=== PATIENT | female | born 1985 | race Caucasian/White ===

== ENCOUNTER 2016-06-25 16:23 | Emergency (ER) | payer SELFPAY ==
[~2016-06-25] VITALS: Ht 162.6 cm; Wt 57.5 kg
[~2016-06-25 16:23] MED LIST: TRAM50TA2 PO
[2016-06-25] MEDS ORDERED: ASPIRIN 81 MG TABLET CHEW ONE (16:56)
[2016-06-25] MEDS ORDERED: ASPIRIN 81 MG TABLET CHEW PO ONE (17:00)
[2016-06-25] MEDS ORDERED: SODIUM CHLORIDE FLUSH 10ML SYR IVF ONE (17:00)
[2016-06-25 17:31] LABS: BLOOD UREA NITROGEN 17 mg/dL (7-18)
[2016-06-25 17:34] LABS: IS PT STATUS REG ER OR PRE ER? YES
[2016-06-25] MEDS ORDERED: KETOROLAC 30 MG/1 ML ONE (17:54)
[2016-06-25] MEDS ORDERED: KETOROLAC 30 MG/1 ML IM ONE (18:00)
[2016-06-25 18:45] VITALS: BP 105/55
== END 2016-06-25 18:50 | disposition home or self-care (01) ==
LOC: ED 18:44
DX: S46.812A Strain of other muscles, fascia and tendons at shoulder and upper arm level, left arm, initial encounter (principal); R07.89 Other chest pain; X58.XXXA Exposure to other specified factors, initial encounter; Y93.89 Activity, other specified; Y99.8 Other external cause status; Y92.89 Other specified places as the place of occurrence of the external cause
CPT/HCPCS: 36415; 71010; 80048; 82040; 84484; 85025; 93005; 96372; 99285; J1885

== ENCOUNTER 2017-03-25 18:01 | Emergency (ER) | payer SELFPAY ==
[~2017-03-25] VITALS: Ht 162.6 cm; Wt 60.6 kg
[2017-03-25] MEDS ORDERED: SODIUM CHLORIDE FLUSH 10ML SYR IVF ONE (19:00)
[2017-03-25] MEDS ORDERED: ONDANSETRON 2MG/ML, 2ML IVPush ONE (19:00)
[2017-03-25] MEDS ORDERED: ASPIRIN 81 MG TABLET CHEW PO ONE (19:00)
[2017-03-25 19:01] LABS: BASOPHILS # (AUTO) 0.02 x10^3/uL (0-0.1); BASOPHILS % (AUTO) 0 % (0-1); EOSINOPHILS # (AUTO) 0.13 x10^3/uL (0-0.4); EOSINOPHILS % (AUTO) 2 % (1-7); LYMPHOCYTES # (AUTO) 2.07 x10^3/uL (1-3.4); LYMPHOCYTES % (AUTO) 32 % (22-44); MD NO; MEAN CORPUSCULAR HEMOGLOBIN 30.2 pg (27.0-34.8); MEAN CORPUSCULAR HGB CONC 33.3 g/dL (32.4-35.8); MEAN CORPUSCULAR VOLUME 90.7 fL (80-100); MEAN PLATELET VOLUME 8.6 fL (7.4-10.4); MONOCYTES # (AUTO) 0.44 x10^3/uL (0.2-0.8); MONOCYTES % (AUTO) 7 % (2-9); NEUTROPHILS # (AUTO) 3.87 x10^3/uL (1.8-6.8); NEUTROPHILS % (AUTO) 59 % (42-75); PLATELET COUNT 270 x10^3/uL (130-400); RED CELL DISTRIBUTION WIDTH 13.4 % (9.6-15.2)
[2017-03-25] MEDS ORDERED: ASPIRIN 81 MG TABLET CHEW ONE (19:08)
[2017-03-25] MEDS ORDERED: ONDANSETRON 2MG/ML, 2ML ONE (19:08)
[2017-03-25 19:14] LABS: ALANINE AMINOTRANSFERASE 26 U/L (12-78); ALBUMIN 3.9 g/dL (3.4-5.0); ANION GAP 8 mmol/L (5-15); CALCIUM 8.8 mg/dL (8.5-10.1); CHLORIDE 106 mmol/L (98-107); CREATININE 0.72 mg/dL (0.55-1.02)
[2017-03-25 19:19] LABS: ALKALINE PHOSPHATASE 45 U/L (45-117); BILIRUBIN,TOTAL 0.4 mg/dL (0.2-1.0); TOTAL PROTEIN 7.7 g/dL (6.4-8.2); TROPONIN I < 0.015 ng/mL (0.000-0.045)
[2017-03-25 19:27] LABS: D-DIMER < 0.19 ug/mlFEU (0.00-0.52); INTERNATIONAL NORMALIZED RATIO 1.13 (0.93-1.1); PARTIAL THROMBOPLASTIN TIME 30 Seconds (25-31); PROTHROMBIN TIME 11.6 Seconds (9.6-11.5)
[2017-03-25] MEDS ORDERED: MAALOX/HYOSCYAMINE/LIDOCAINE 45 ML BTL PO ONE (20:00)
[2017-03-25] MEDS ORDERED: MORPHINE SULFATE 4 MG/ML, 1ML IVPush ONE (20:00)
[2017-03-25 20:06] LABS: HCT (SEDRATE) 43.7 % (34.6-47.8)
[2017-03-25] MEDS ORDERED: MAALOX/HYOSCYAMINE/LIDOCAINE 45 ML BTL ONE (20:17)
[2017-03-25] MEDS ORDERED: MORPHINE SULFATE 4 MG/ML, 1ML ONE (20:17)
[2017-03-25 21:24] VITALS: BP 105/61
== END 2017-03-25 21:27 | disposition home or self-care (01) ==
LOC: ED 21:21
DX: R07.2 Precordial pain (principal); R11.2 Nausea with vomiting, unspecified
CPT/HCPCS: 36415; 71045; 80053; 83690; 83880; 84484; 84703; 85025; 85379; 85610; 85651; 85730; 86140; 93005; 96374; 96375; 99285; J2405

== ENCOUNTER 2017-03-29 17:51 | Emergency (ER) | payer OTHER ==
[~2017-03-29] VITALS: Ht 162.6 cm; Wt 61.1 kg
[2017-03-29] MEDS ORDERED: SODIUM CHLORIDE FLUSH 10ML SYR IVF ONE (18:30)
[2017-03-29] MEDS ORDERED: SODIUM CHLORIDE 0.9% 1,000ML IVBOLUS ONE (18:30)
[2017-03-29] MEDS ORDERED: ASPIRIN 81 MG TABLET CHEW PO ONE (18:30)
[2017-03-29 19:03] LABS: ALBUMIN 4.1 g/dL (3.4-5.0); ANION GAP 8 mmol/L (5-15); CALCIUM 8.6 mg/dL (8.5-10.1); CHLORIDE 106 mmol/L (98-107)
[2017-03-29] MEDS ORDERED: ASPIRIN 81 MG TABLET CHEW ONE (19:05)
[2017-03-29 19:07] LABS: ALANINE AMINOTRANSFERASE 21 U/L (12-78); ALKALINE PHOSPHATASE 44 U/L (45-117); BILIRUBIN,TOTAL 0.4 mg/dL (0.2-1.0); TOTAL PROTEIN 7.6 g/dL (6.4-8.2); TROPONIN I < 0.015 ng/mL (0.000-0.045)
[2017-03-29] MEDS ORDERED: MORPHINE SULFATE 4 MG/ML, 1ML ONE (19:56)
[2017-03-29] MEDS ORDERED: MORPHINE SULFATE 4 MG/ML, 1ML IVPush PRN (20:00)
[2017-03-29] MEDS ORDERED: ONDANSETRON 2MG/ML, 2ML IVPush ONE (20:00)
[2017-03-29] MEDS ORDERED: OMNIPAQUE 350 MG/ML, 100ML BOTTLE ONE (20:00)
[2017-03-29] MEDS ORDERED: ONDANSETRON 2MG/ML, 2ML ONE (20:19)
[2017-03-29 20:33] LABS: RAPID INFLUENZA A Negative (Negative); RAPID INFLUENZA B Negative (Negative)
[2017-03-29 21:27] VITALS: BP 136/66
== END 2017-03-29 21:29 | disposition home or self-care (01) ==
LOC: ED 21:13
DX: B34.9 Viral infection, unspecified (principal); R07.89 Other chest pain; R09.1 Pleurisy; Z86.73 Personal history of transient ischemic attack (TIA), and cerebral infarction without residual deficits; Z95.2 Presence of prosthetic heart valve
CPT/HCPCS: 36415; 71046; 71275; 80053; 83880; 84484; 87400; 93005; 96361; 96374; 96375; 99285; J2405; J7030; Q9967

== ENCOUNTER 2017-06-05 17:40 | Emergency (ER) | payer OTHER ==
[~2017-06-05] VITALS: Ht 162.6 cm; Wt 64.0 kg
[2017-06-05 18:43] LABS: BASOPHILS # (AUTO) 0.05 x10^3/uL (0-0.1); BASOPHILS % (AUTO) 1 % (0-1); EOSINOPHILS # (AUTO) 0.11 x10^3/uL (0-0.4); EOSINOPHILS % (AUTO) 1 % (1-7); LYMPHOCYTES % (AUTO) 32 % (22-44); MD NO; MEAN CORPUSCULAR HEMOGLOBIN 30.5 pg (27.0-34.8); MEAN CORPUSCULAR HGB CONC 33.8 g/dL (32.4-35.8); MEAN CORPUSCULAR VOLUME 90.4 fL (80-100); MEAN PLATELET VOLUME 8.4 fL (7.4-10.4); MONOCYTES # (AUTO) 0.61 x10^3/uL (0.2-0.8); MONOCYTES % (AUTO) 8 % (2-9); NEUTROPHILS # (AUTO) 4.67 x10^3/uL (1.8-6.8); NEUTROPHILS % (AUTO) 59 % (42-75); PLATELET COUNT 284 x10^3/uL (130-400); RED BLOOD COUNT 4.63 x10^6/uL (3.82-5.3); RED CELL DISTRIBUTION WIDTH 13.3 % (9.6-15.2)
[2017-06-05 18:55] LABS: ALBUMIN 4.1 g/dL (3.4-5.0); ANION GAP 8 mmol/L (5-15); CHLORIDE 105 mmol/L (98-107)
[2017-06-05] MEDS ORDERED: MAALOX/HYOSCYAMINE/LIDOCAINE 45 ML BTL PO ONE (19:00)
[2017-06-05] MEDS ORDERED: FAMOTIDINE 20 MG TABLET PO ONE (19:00)
[2017-06-05] MEDS ORDERED: ONDANSETRON ODT 8 MG PO ONE (19:00)
[2017-06-05 19:01] LABS: ALANINE AMINOTRANSFERASE 36 U/L (12-78); ALKALINE PHOSPHATASE 46 U/L (45-117); BILIRUBIN,TOTAL 0.5 mg/dL (0.2-1.0); CREATININE 0.74 mg/dL (0.55-1.02)
[2017-06-05] MEDS ORDERED: FAMOTIDINE 20 MG TABLET ONE (19:17)
[2017-06-05] MEDS ORDERED: MAALOX/HYOSCYAMINE/LIDOCAINE 45 ML BTL ONE (19:17)
[2017-06-05] MEDS ORDERED: ONDANSETRON ODT 8 MG ONE (19:17)
[2017-06-05 20:29] LABS: MICROSCOPIC AUTO
[2017-06-05 20:30] LABS: CULTURE INDICATED? NO
[2017-06-05] MEDS ORDERED: OXYcodone/APAP 5/325MG TABLET ONE (20:51)
[2017-06-05] MEDS ORDERED: OXYcodone/APAP 5/325MG TABLET PO ONE (21:00)
[2017-06-05 21:06] VITALS: BP 106/60
== END 2017-06-05 21:07 | disposition home or self-care (01) ==
LOC: ED 20:18
DX: K29.01 Acute gastritis with bleeding (principal); R11.2 Nausea with vomiting, unspecified; Z95.2 Presence of prosthetic heart valve
CPT/HCPCS: 36415; 76700; 80053; 81001; 83690; 84703; 85025; 99285; Q0162